=== PATIENT | male | born 1985 | race Caucasian/White ===

== ENCOUNTER 2020-11-26 12:04 | Outpatient (CLI) | payer BC, SELFPAY ==
--- NOTE | ~2020-11-26 | US_ITS ---
EXAMINATION: US venous doppler [facility] DATE: 11/26/2020 12:45 INDICATION: Left lower limb pain TECHNIQUE: Salgado scale images without and with compression and Doppler images of the left lower extrem ity veins were obtained. COMPARISON: None FINDINGS: There is thrombosis in the peroneal vein. The left common femoral vein, profunda femoral ve in, femoral vein, popliteal vein, posterior tibial veins, and greater saphenous vein are patent. IMPRESSION: 1. Peroneal vein thrombosis. Reviewed, dictated and finalized at location A.
== END 2020-11-26 12:05 | disposition home or self-care (01) ==
PROVIDERS: PCP Internal Medicine; Visit Provider Internal Medicine
DX: M79.89 Other specified soft tissue disorders (principal); I82.452 Acute embolism and thrombosis of left peroneal vein
CPT/HCPCS: 93971

== ENCOUNTER 2021-11-03 15:30 | Outpatient (RCR) | payer BC, SELFPAY | END 2021-11-04 13:53 | disposition home or self-care (01) | LOC: ANHDMC 15:30 | PROVIDERS: PCP Internal Medicine; Visit Provider Internal Medicine | DX: E11.9 Type 2 diabetes mellitus without complications (principal); Z71.89 Other specified counseling | CPT/HCPCS: G0108 ==